=== PATIENT | male | born 1980 | race Caucasian/White ===

== ENCOUNTER 2019-10-08 06:56 | Emergency (ER) | payer MEDICAID ==
[~2019-10-08] VITALS: Ht 177.8 cm; Wt 70.0 kg
[2019-10-08 06:58] VITALS: BP 134/92
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
[2019-10-08] MEDS ORDERED: HYDROcodone/APAP 5/325 TABLET ONE (07:49)
--- NOTE | 2019-10-08 07:50 | NUR ---
PT TO RAD.
[2019-10-08] MEDS ORDERED: HYDROcodone/APAP 5/325 TABLET PO ONE (08:00)
[2019-10-08] MEDS ORDERED: PLEASE ENTER ALLERGIES MC SCH (08:00)
--- NOTE | 2019-10-08 09:08 | NUR ---
REPORT FROM JORGITO. SPLINT IN PROCESS
--- NOTE | 2019-10-08 09:35 | NUR ---
Patient/Caregiver given discharge instructions and they have confirmed that they understand the instructions. Patient ambulatory with steady gait.
== END 2019-10-08 10:06 | disposition home or self-care (01) ==
LOC: ED 09:40
DX: S82.832A Other fracture of upper and lower end of left fibula, initial encounter for closed fracture (principal); X58.XXXA Exposure to other specified factors, initial encounter; Y93.89 Activity, other specified; Y92.488 Other paved roadways as the place of occurrence of the external cause; Y99.8 Other external cause status
CPT/HCPCS: 29505; 99284

== ENCOUNTER 2019-10-29 07:54 | Emergency (ER) | payer MEDICAID ==
[~2019-10-29] VITALS: Ht 177.8 cm; Wt 70.0 kg
[2019-10-29 07:56] VITALS: BP 115/69
--- NOTE | 2019-10-29 08:16 | NUR ---
PORTABLE XR AT BEDSIDE.
--- NOTE | 2019-10-29 08:28 | NUR ---
FAUZIA LAYNE AT BEDSIDE PLACING A SPLINT ON LEFT LOWER LEG.
--- NOTE | 2019-10-29 08:47 | NUR ---
PT DISCHARGED HOME IN A STABLE CONDITION. DC INSTRUCTIONS WERE DISCUSSED WITH PT. PRESCRIPTION WAS PROVIDED TO PT. PT DENIES ANY FURTHER QUESTIONS OR CONCERNS. PT TO CRUTCH WALK WITH RN OUT OF ED.
--- NOTE | 2019-10-29 08:57 | NUR ---
MT: PER REGISTRATION, PT STATED "I DON'T WANT THESE CRUTCHES."
== END 2019-10-29 08:49 | disposition home or self-care (01) ==
LOC: ED 08:39
DX: S82.402A Unspecified fracture of shaft of left fibula, initial encounter for closed fracture (principal); X50.1XXA Overexertion from prolonged static or awkward postures, initial encounter; Y93.89 Activity, other specified; Y92.099 Unspecified place in other non-institutional residence as the place of occurrence of the external cause; Y99.8 Other external cause status
CPT/HCPCS: 29515; 99283

== ENCOUNTER 2019-12-02 21:43 | Emergency (ER) | payer MEDICAID ==
[~2019-12-02] VITALS: Ht 177.8 cm; Wt 70.0 kg
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
[2019-12-02 23:20] VITALS: BP 101/72
--- NOTE | 2019-12-02 23:53 | NUR ---
PT PROVIDED WRITTEN RESOURCES AND TAXI VOUCHER TO [facility]. PT VERBALIZED UNDERSTANDING OF DC INSTRUCTIONS. AMBULATED W/ A STEADY GAIT TO DC DESK.
== END 2019-12-02 23:55 | disposition home or self-care (01) ==
LOC: ED 23:36
DX: F20.1 Disorganized schizophrenia (principal); F41.9 Anxiety disorder, unspecified; R41.0 Disorientation, unspecified; Z72.9 Problem related to lifestyle, unspecified
CPT/HCPCS: 99283